=== PATIENT | male | born 2000 | race Caucasian/White ===

== ENCOUNTER 2019-09-16 19:39 | Emergency (ER) | payer MEDICAID ==
[~2019-09-16] VITALS: Ht 172.7 cm; Wt 68.6 kg
[2019-09-16 20:00] VITALS: BP 139/79
--- NOTE | 2019-09-16 20:05 | NUR ---
PT AMBULATED TO LOBBY AT THIS TIME, VSS.
--- NOTE | 2019-09-16 20:10 | NUR ---
PT C/O CX PAIN/SOB/TINGLING TO LUE/LLE X2 DAYS. LUNG SOUNDS CLEAR THROUGHOUT. ABD SOFT, NON-TENDER/NON-DISTENDED. STATES PAIN IS 6/10 AT THIS TIME. SPO2 @ 100% ON RA. CLAIMS NO MEDS TAKEN. SAFETY PRECAUTIONS IN PLACE. BED LOW AND LOCKED. PMH: NONE NKA. Addendum: 09/16/19 at 2201 by CYNTHIA TIME OF ASSESSMENT 2039.
--- NOTE | 2019-09-16 20:37 | NUR ---
PATIENT AMB TO BED 6
--- NOTE | 2019-09-16 22:01 | NUR ---
PT STATES HE FEELS OKAY RIGHT NOW. MOTHER AT BEDSIDE.
[2019-09-16 23:23] LABS: ANION GAP 8.9 (8-16); CARBON DIOXIDE 30.2 mmol/L (21-32); CREATININE 0.9 mg/dL (0.6-1.3); POTASSIUM 4.1 mmol/L (3.5-5.1)
[2019-09-16 23:25] LABS: BASOPHILS % (AUTO) 0.7 % (0.0-2.0); EOSINOPHILS # (AUTO) 0.1 K/uL (0-0.4); EOSINOPHILS % (AUTO) 1.8 % (0.0-4.0); HEMOGLOBIN 14.9 g/dL (12.0-18.0); LYMPHOCYTES # (AUTO) 2.3 K/uL (2.0-11.5); LYMPHOCYTES % (AUTO) 38.6 % (20.5-51.1); MEAN CORPUSCULAR HEMOGLOBIN 32 pg (27-31); MEAN CORPUSCULAR HGB CONC 36 g/dL (33-37); MEAN CORPUSCULAR VOLUME 89.6 fL (80-94); MONOCYTES # (AUTO) 0.4 K/uL (0.8-1.0); MONOCYTES % (AUTO) 6.4 % (1.7-9.3); NEUTROPHILS # (AUTO) 3.1 K/uL (1.8-7.7); NEUTROPHILS % (AUTO) 52.5 % (42.2-75.2); PLATELET COUNT (AUTO) 221 K/uL (140-450); RED BLOOD CELL COUNT(AUTO) 4.68 MIL/uL (4.20-6.10); RED CELL DISTRIBUTION WIDTH 13.1 % (11.6-13.7)
[2019-09-17 01:00] VITALS: BP 139/79
--- NOTE | 2019-09-17 01:01 | NUR ---
Patient discharged with v/s stable. Written and verbal after care instructions given and explained. Patient verbalized understanding. Ambulatory with steady gait. All questions addressed prior to discharge. Advised to follow up with PMD.
== END 2019-09-17 01:01 | disposition home or self-care (01) ==
LOC: MED 19:39
DX: R07.9 Chest pain, unspecified (principal); R10.13 Epigastric pain; M54.9 Dorsalgia, unspecified; F12.90 Cannabis use, unspecified, uncomplicated
CPT/HCPCS: 36415; 80048; 84484; 85025; 93005; 99284